=== PATIENT | female | born 1995 | race Caucasian/White ===

== ENCOUNTER 2019-04-23 10:18 | Inpatient (IN) ==
[2019-04-23] MEDS ORDERED: ONDANSETRON 4 MG/2 ML VIAL IV PRN (12:45)
[2019-04-23] MEDS ORDERED: BUTORPHANOL 2 MG/ML VIAL IV PRN (12:45)
[2019-04-23] MEDS ORDERED: MEPERIDINE 50 MG/1 ML VIAL IM PRN (12:45)
[2019-04-23] MEDS ORDERED: ONDANSETRON 4 MG/2 ML VIAL IV ONE (12:49)
[2019-04-23] MEDS ORDERED: ePHEDrine 50 MG/ML AMP IV PRN (12:49)
[2019-04-23] MEDS ORDERED: hydrOXYzine HCL 25 MG/1 ML VIAL IM PRN (12:49)
[2019-04-23] MEDS ORDERED: LACTATED RINGERS 1,000 ML IV ONE (12:49)
[2019-04-23] MEDS ORDERED: diphenhydrAMINE 50 MG/1 ML VIAL IV PRN ×2 (12:49)
[2019-04-23] MEDS ORDERED: CITRIC ACID/SODIUM CITRATE 30 ML UDCUP PO ONE (12:49)
[2019-04-23] MEDS ORDERED: NALOXONE 0.4 MG/ML VIAL IV PRN (12:49)
[2019-04-23] MEDS ORDERED: PROMETHAZINE 25 MG/1 ML VIAL IM ONE (12:49)
[2019-04-23] MEDS ORDERED: FAMOTIDINE 20 MG/2 ML VIAL IV ONE (12:49)
[2019-04-23] MEDS ORDERED: OXYTOCIN/LR 20 UNIT/1,000 ML BAG IV SCH (13:00)
[2019-04-23] MEDS ORDERED: LACTATED RINGERS 1,000 ML IV SCH (13:00)
[2019-04-23] MEDS ORDERED: fentaNYL 2 MCG/ROPIV 0.2% EPID 100 ML EPIDURAL SCH (13:00)
[2019-04-23 13:11] LABS: Basophils % 0.3 % (0.0-0.8); Eosinophils % 0.3 % (0.00-10.9); Hematocrit 30.9 VOL% (35.7-47.0); Hemoglobin 10.2 GM/DL (12.0-16.0); Immature Granulocytes % 0.4 %; Immature Granulocytes Absolute 0.03 #; Lymphocytes # 1.4 10*3/uL (1.4-4.0); Lymphocytes % 19.7 % (21.3-54.2); Mean Corpuscular Volume 95.7 FL (87-102); Mean Platelet Volume 11.6 FL (9.6-12.0); Monocytes % 8.6 % (1.7-12.7); Neutrophils % 70.7 % (38.7-73.9); Platelet Count 148 T/CUMM (130-400); Red Blood Count 3.23 MC/CUMM (3.8-5.5); Red Cell Distribution Width 12.8 % (9.3-17.3); White Blood Count 6.9 T/CUMM (4-12)
[2019-04-23 13:27] LABS: Alanine Aminotransferase 10 U/L (13-56); Albumin 2.6 G/DL (3.4-5.0); Alkaline Phosphatase 146 U/L (45-117); Aspartate Amino Transferase 17 U/L (0-37); Bilirubin,Total < 0.39 MG/DL (0.2-1.0); Blood Urea Nitrogen 12 MG/DL (7-18); Calcium 8.9 MG/DL (8.5-10.1); Estimated Glom Filtration Rate 123 ML/MIN; Glucose 87 MG/DL (74-106); Osmolality,Calculated 279.3 MOS/KG (273-304); Total Protein 5.9 G/DL (6.4-8.3)
[2019-04-23] MEDS ORDERED: AMPICILLIN INJ 2,000 MG in SODIUM CHLORIDE 0.9% 100 ML IV ONE (14:59)
[2019-04-23] MEDS ORDERED: SODIUM CHLORIDE 0.9% 100 ML IV ONE (15:02)
[2019-04-23] MEDS ORDERED: AMPICILLIN 2,000 MG VIAL ONE (15:02)
[2019-04-23 15:18] LABS: Apearance,Urine CLEAR (Clear); Bacteria,Urine Occasional /HPF (Few); Bilirubin,Urine Negative (Negative); Blood, Urine Negative (Negative); Glucose,Urine (UA) Negative (Negative); Ketones,Urine Negative (Negative); Nitrite,Urine Negative (Negative); Protein,Urine Negative; RBC,Urine <1 /HPF (0-4); Squamous Epithelial Cell,Urine Occasional /HPF (0-10); Urine Color Colorless (Yellow); Urine Specific Gravity 1.003 (1.001-1.035); Urine Urobilinogen < 2.0 EU/DL (0.2-1.0); WBC,Urine <1 /HPF (0-6)
[2019-04-23] MEDS ORDERED: miSOPROStoL 200 MCG TABLET ONE (15:44)
[2019-04-23] MEDS ORDERED: METHYLERGONOVINE 0.2 MG/1 ML AMP ONE (15:44)
[2019-04-23] MEDS ORDERED: LIDOCAINE 1% 50 ML VIAL ONE (15:44)
[2019-04-23] MEDS ORDERED: WITCH HAZEL PADS 100/JAR TOP PRN (16:33)
[2019-04-23] MEDS ORDERED: LANOLIN 50% CREAM 0.3 OZ TUBE TOP PRN (16:33)
[2019-04-23] MEDS ORDERED: DIPH/TET/ACEL PERT BOOSTER VACCINE 0.5 ML VIAL IM ONE (16:33)
[2019-04-23] MEDS ORDERED: OXYTOCIN/LR 20 UNIT/1,000 ML BAG IV ONE (16:33)
[2019-04-23] MEDS ORDERED: ACETAMINOPHEN 325 MG TABLET PO PRN (16:33)
[2019-04-23] MEDS ORDERED: HYDROCORTISONE 2.5% RECTAL CREAM 30 GM TUBE TOP PRN (16:33)
[2019-04-23] MEDS ORDERED: RHO(D) IMMUNE GLOBULIN 300 MCG SYRINGE IM ONE (16:33)
[2019-04-23] MEDS ORDERED: BENZOCAINE 20%/MENTHOL 0.5% SPRAY 56 GM CAN TOP PRN (16:33)
[2019-04-23] MEDS ORDERED: oxyCODONE/ACETAMINOPHEN 5-325 MG TABLET PO PRN (16:33)
[2019-04-23] MEDS ORDERED: MEASLES/MUMPS/RUBELLA VACCINE 0.5 ML VIAL SUBCUT ONE (16:33)
[2019-04-23] MEDS ORDERED: BISACODYL 10 MG SUPP RECTAL PRN (16:33)
[2019-04-23] MEDS ORDERED: AMPICILLIN INJ 1,000 MG in SODIUM CHLORIDE 0.9% 100 ML IV SCH (19:00)
[2019-04-23] MEDS: IBUPROFEN 800 MG TABLET PO PRN (19:37)
[2019-04-23] MEDS: oxyCODONE/ACETAMINOPHEN 5-325 MG TABLET PO PRN (19:37)
[2019-04-23] MEDS: DOCUSATE SODIUM 100 MG CAPSULE PO SCH (20:14)
[2019-04-24] MEDS: oxyCODONE/ACETAMINOPHEN 5-325 MG TABLET PO PRN ×4 (02:05→21:24)
[2019-04-24] MEDS: IBUPROFEN 800 MG TABLET PO PRN ×4 (02:05→21:23)
[2019-04-24 05:52] LABS: Basophils % 0.4 % (0.0-0.8); Eosinophils % 0.2 % (0.00-10.9); Hematocrit 29.7 VOL% (35.7-47.0); Hemoglobin 9.8 GM/DL (12.0-16.0); Immature Granulocytes % 0.5 %; Immature Granulocytes Absolute 0.04 #; Lymphocytes # 1.7 10*3/uL (1.4-4.0); Lymphocytes % 19.9 % (21.3-54.2); Mean Corpuscular Volume 96.1 FL (87-102); Mean Platelet Volume 11.3 FL (9.6-12.0); Monocytes % 7.9 % (1.7-12.7); Neutrophils % 71.1 % (38.7-73.9); Platelet Count 133 T/CUMM (130-400); Red Blood Count 3.09 MC/CUMM (3.8-5.5); White Blood Count 8.5 T/CUMM (4-12)
[2019-04-24] MEDS: DOCUSATE SODIUM 100 MG CAPSULE PO SCH ×2 (08:56→21:23)
[2019-04-25] MEDS: oxyCODONE/ACETAMINOPHEN 5-325 MG TABLET PO PRN (04:29)
[2019-04-25] MEDS: IBUPROFEN 800 MG TABLET PO PRN (04:30)
[2019-04-25 07:18] VITALS: BP 99/69
[2019-04-25] MEDS: DOCUSATE SODIUM 100 MG CAPSULE PO SCH (10:15)
[2019-04-25] MEDS ORDERED: DIPH/TET/ACEL PERT BOOSTER VACCINE 0.5 ML VIAL IM ONE (10:59)
== END 2019-04-25 11:45 | disposition home or self-care (01) | DRG 807 ==
LOC: N.LDOUT 10:18 → N.LD 10:21 → N.OB 04-24 19:00
PROVIDERS: ADMIT Obstetrics & Gynecology; ATTEND Obstetrics & Gynecology